=== PATIENT | female | born 1990 | race African-American/Black ===

== ENCOUNTER 2023-12-02 00:01 | Emergency (ER) | payer SELFPAY ==
[2023-12-02] MEDS ORDERED: Dexamethasone 10 MG/ML VIAL ONE (01:43)
[2023-12-02] MEDS ORDERED: Ipratropium/Albuterol 3 ML NEB ONE (02:25)
== END 2023-12-02 03:00 | disposition home or self-care (01) ==
LOC: ERS 00:01
DX: R05.9 Cough, unspecified (principal)
CPT/HCPCS: 71046; 87428; 94640; 96372; J1100; J7620

== ENCOUNTER 2024-01-15 08:48 | Emergency (ER) | payer OTHER, SELFPAY | END 2024-01-15 09:14 | disposition home or self-care (01) | LOC: ERS 08:48 | DX: B34.9 Viral infection, unspecified (principal); J45.909 Unspecified asthma, uncomplicated; Z55.0 Illiteracy and low-level literacy; Z87.891 Personal history of nicotine dependence; Z79.51 Long term (current) use of inhaled steroids | CPT/HCPCS: 99282 ==